=== PATIENT | female | born 1965 | race African-American/Black ===

== ENCOUNTER 2017-04-12 16:13 | Emergency (ER) | payer OTHER ==
[2017-04-12 17:01] LABS: BASOPHIL 0.2 % (0-2); EOSINOPHIL 1.5 % (0-5); HCT 40.5 % (37.0-47.0); HGB 13.2 g/dl (12.5-16.0); LYMPHOCYTE 18.5 % (15-48); MCH 27.6 pg (25.0-31.0); MCHC 32.6 g/dL (32.0-36.0); MCV 84.7 fL (78.0-100.0); MONOCYTE 4.8 % (0-12); MPV 11.3 fL (6.0-9.5); PLT 273 K/uL (150-400); RBC 4.78 M/uL (4.20-5.40); RDW 14.4 % (11.5-14.0); WBC 10.5 K/uL (4.0-10.5)
[2017-04-12 17:07] LABS: BILIRUBIN NEGATIVE (NEGATIVE); BLOOD TRACE-INTACT Ery/uL (NEGATIVE); CLARITY CLEAR (CLEAR); COLOR YELLOW (YELLOW); GLUCOSE (U) NORMAL (NORMAL); KETONE (U) NEGATIVE (NEGATIVE); LEUKOCYTES NEGATIVE Leu/uL (NEGATIVE); NITRITE NEGATIVE (NEGATIVE); PROTEIN NEGATIVE (NEGATIVE); SPECIFIC GRAVITY 1.025 (1.001-1.030); UROBILINOGEN 0.2 mg/dL (0.2-1.0)
[2017-04-12 17:13] LABS: BACTERIA TRACE; SQUAMOUS EPITHELIAL CELLS 20-50; URINARY WBC RARE; YEAST PRESENT
[2017-04-12 17:17] LABS: ALBUMIN 4.2 g/dL (3.5-5.0); BILIRUBIN - TOTAL 0.2 mg/dL (0.1-1.0); CREATININE 0.5 mg/dL (0.5-1.0); GLOBULIN (CALCULATION) 3.1 g/dL (2.2-4.2); POTASSIUM 4.6 mmol/L (3.5-5.1); TOTAL PROTEIN 7.3 g/dL (6.4-8.3)
[2017-04-12 17:17] LABS: AMPHETAMINES NEGATIVE (NEGATIVE); BARBITURATES NEGATIVE (NEGATIVE); BENZODIAZEPINES NEGATIVE (NEGATIVE); COCAINE NEGATIVE (NEGATIVE); MARIJUANA (THC) NEGATIVE (NEGATIVE); METHADONE NEGATIVE (NEGATIVE); TRICYCLIC ANTIDEPRESSANT POSITIVE (NEGATIVE)
[2017-04-12 17:20] LABS: ALCOHOL (ETOH) MEDICAL NONE DETECTED; SALICYLATE < 6 ug/mL (0-300)
== END 2017-04-12 20:30 | disposition other institution (70) ==
LOC: FER 16:13
PROVIDERS: Emergency Medicine
DX: R41.82 Altered mental status, unspecified (principal); J96.00 Acute respiratory failure, unspecified whether with hypoxia or hypercapnia; Z88.0 Allergy status to penicillin; Z79.899 Other long term (current) drug therapy
CPT/HCPCS: 31500; 36415; 70450; 71010; 80053; 80305; 81001; 82140; 84443; 84484; 84703; 85025; 92950; 93005; 94002; 94770; G0480; J2310; J2405; J2704